=== PATIENT | male | born 1940 | race African-American/Black ===

== ENCOUNTER → 2017-06-07 | Outpatient (CLI) | payer MEDICARE | END | disposition home or self-care (01) | LOC: NM 07:33 | PROVIDERS: ATTEND Internal Medicine | DX: E04.1 Nontoxic single thyroid nodule (principal) | CPT/HCPCS: 78014; A9516 ==

== ENCOUNTER → 2022-07-14 | Outpatient (CLI) | payer MEDICARE, OTHER ==
[~2022-07-14] MED LIST: BARIUM SULFATE 450ML ORAL SUSP ONE
== END | disposition home or self-care (01) ==
LOC: CT 07:31
PROVIDERS: ATTEND Internal Medicine Gastroenterology
DX: N40.0 Benign prostatic hyperplasia without lower urinary tract symptoms (principal); J98.4 Other disorders of lung; M47.816 Spondylosis without myelopathy or radiculopathy, lumbar region; R10.9 Unspecified abdominal pain; K59.00 Constipation, unspecified; R63.4 Abnormal weight loss
CPT/HCPCS: 74176

== ENCOUNTER 2022-09-01 17:20 | Emergency (ER) | payer MEDICARE, OTHER ==
[~2022-09-01] VITALS: Ht 185.4 cm; Wt 82.7 kg
[2022-09-01 17:22] VITALS: BP 156/80; PULSE 60; RESP 18; O2SAT 99
[2022-09-01 19:00] VITALS: TEMP 98.1
[2022-09-01] MEDS ORDERED: LACTULOSE 20G/30ML UDC PO PRN (19:00)
[2022-09-01] MEDS ORDERED: ACETAMINOPHEN 325MG TABLET PO ONE (19:00)
[2022-09-01 19:41] LABS: BASOPHILS % 0.6 % (0.0-2.0); EOSINOPHILS % 2.2 % (0.0-5.0); HEMATOCRIT. 45.9 % (42.0-52.0); HEMOGLOBIN. 15.5 g/dL (14.0-18.0); LYMPHOCYTES % 28.9 % (20.0-50.0); MEAN CORPUSCULAR HEMOGLOBIN 30.5 pg (28.0-32.0); MEAN CORPUSCULAR VOLUME 90.4 fL (80.0-94.0); MEAN PLATELET VOLUME 8.2 fl (7.4-10.4); MONOCYTES % 10.1 % (2.0-8.0); NEUTROPHILS % 58.2 % (40.0-76.0); PLATELET 240 x1000/uL (130-400); RED BLOOD CELL COUNT 5.08 mill/uL (4.7-6.1); RED CELL DISTRIBUTION WIDTH 14.2 % (11.6-14.6)
[2022-09-01 19:51] LABS: INR 1.1; PROTHROMBIN TIME 12.1 sec (9.6-11.0)
[2022-09-01 20:10] LABS: CHLORIDE 112 mEq/L (98-107)
[2022-09-01 20:43] LABS: CLARITY URINE CLEAR (CLEAR); COLOR URINE DARK YELLOW (YELLOW); KETONES URINE TRACE (NEGATIVE); LEUKOCYTE ESTERASE URINE NEGATIVE (NEGATIVE); NITRITE URINE NEGATIVE (NEGATIVE); OCCULT BLOOD URINE NEGATIVE (NEGATIVE); PH URINE 5.5 (4.5-8.0); PROTEIN URINE 2+ (NEGATIVE); SPECIFIC GRAVITY URINE 1.033 (1.005-1.030)
== END 2022-09-01 23:40 | disposition home or self-care (01) ==
LOC: ER 17:20
DX: K59.00 Constipation, unspecified (principal); I10 Essential (primary) hypertension; Z98.890 Other specified postprocedural states
CPT/HCPCS: 36415; 74022; 80053; 81003; 85025; 99284

== ENCOUNTER 2022-09-23 16:15 | Emergency (ER) | payer MEDICARE, OTHER ==
[~2022-09-23] VITALS: Ht 185.4 cm; Wt 81.0 kg
[2022-09-23 16:29] VITALS: BP 159/94; PULSE 72; RESP 16; TEMP 97.7; O2SAT 100
[2022-09-23 17:33] LABS: BASOPHILS % 0.4 % (0.0-2.0); EOSINOPHILS % 1.3 % (0.0-5.0); HEMATOCRIT. 42.3 % (42.0-52.0); HEMOGLOBIN. 14.2 g/dL (14.0-18.0); LYMPHOCYTES % 32.1 % (20.0-50.0); MEAN CORPUSCULAR HEMOGLOBIN 30.4 pg (28.0-32.0); MEAN CORPUSCULAR HGB CONC 33.5 g/dL (31.0-37.0); MEAN CORPUSCULAR VOLUME 90.7 fL (80.0-94.0); MEAN PLATELET VOLUME 8.7 fl (7.4-10.4); MONOCYTES % 10.4 % (2.0-8.0); NEUTROPHILS % 55.8 % (40.0-76.0); PLATELET 179 x1000/uL (130-400); RED BLOOD CELL COUNT 4.66 mill/uL (4.7-6.1); RED CELL DISTRIBUTION WIDTH 14.1 % (11.6-14.6)
[2022-09-23 17:37] LABS: CHLORIDE 111 mEq/L (98-107); INDEX HEMOLYSI 1 (1-3); INDEX ICTERIC 1 (1-4); INDEX LIPEMIC 1 (1-3); POTASSIUM 3.6 mEq/L (3.5-5.1); SODIUM 140 mEq/L (136-145)
[2022-09-23 17:45] LABS: ALANINE AMINOTRANSFERASE 20 IU/L (13-61); ALBUMIN 3.5 g/dL (3.4-5.0); ASPARTATE AMINOTRANSFERASE 18 IU/L (15-37); BILIRUBIN TOTAL 0.8 mg/dL (0.1-1.0); CALCIUM 8.4 mg/dL (8.5-10.1); CARBON DIOXIDE 26 mEq/L (21-32); CREATININE 1.1 mg/dL (0.6-1.3); GLUCOSE 97 mg/dL (70-105); PROTEIN TOTAL 6.9 g/dL (6.0-8.3); UREA NITROGEN BLOOD 13 mg/dL (7-21)
[2022-09-23] MEDS ORDERED: NA P230E RC (18:57)
[2022-09-23] MEDS ORDERED: POLY119P2 MT (18:57)
[2022-09-23] MEDS ORDERED: MOM MT (18:57)
== END 2022-09-23 19:47 | disposition home or self-care (01) ==
LOC: ER 16:15
DX: K59.00 Constipation, unspecified (principal); I10 Essential (primary) hypertension; Z98.890 Other specified postprocedural states
CPT/HCPCS: 36415; 74176; 80053; 85025; 99284

== ENCOUNTER 2024-09-10 01:22 | Inpatient (IN) | payer MEDICARE, OTHER ==
[2024-09-10] VITALS (9 sets, daily range): BP systolic 91–144; BP diastolic 79–122; PULSE 81–110; RESP 15–27; TEMP 36–36.6; O2SAT 86–100
[~2024-09-10] VITALS: Ht 185.4 cm; Wt 105.7 kg
[~2024-09-10 01:22] MED LIST changes: +ALPR-341 PO; -BARIUM SULFATE 450ML ORAL SUSP ONE; +CARV25TA47 PO; +FURO40TA5 PO; +LINA145C PO; +RIVA20TA PO; +TAMS-54 PO; +ZOLP12.52 PO
[2024-09-10 02:41] LABS: BASOPHILS % 0.4 % (0.0-2.0); EOSINOPHILS % 1.8 % (0.0-5.0); HEMATOCRIT. 46.3 % (42.0-52.0); HEMOGLOBIN. 15.0 g/dL (14.0-18.0); LYMPHOCYTES % 19.4 % (20.0-50.0); MEAN PLATELET VOLUME 9.2 fl (7.4-10.4); MONOCYTES % 10.2 % (2.0-8.0); NEUTROPHILS % 68.2 % (40.0-76.0); PLATELET 165 x1000/uL (130-400); RED BLOOD CELL COUNT 5.01 mill/uL (4.7-6.1); RED CELL DISTRIBUTION WIDTH 20.2 % (11.6-14.6)
[2024-09-10 02:48] LABS: INR 1.4
[2024-09-10 03:05] LABS: CREATININE 1.3 mg/dL (0.6-1.3); UREA NITROGEN BLOOD 16 mg/dL (9-23)
[2024-09-10 03:06] LABS: ETHANOL BLOOD < 10 mg/dL (<10); TROPONIN I HIGH SENSITIVITY 39 ng/L (3.0-53)
[2024-09-10 03:07] LABS: ASPARTATE AMINOTRANSFERASE 29 IU/L (<34); BILIRUBIN DIRECT 0.7 mg/dL (<=3.0)
[2024-09-10 03:08] LABS: BILIRUBIN TOTAL 1.5 mg/dL (0.1-1.0); PROTEIN TOTAL 5.8 g/dL (6.0-8.3)
[2024-09-10] MEDS: FUROSEMIDE 40MG/4ML VIAL IVP NR (03:35)
[2024-09-10] MEDS ORDERED: IPRATROPIUM/ALBUTEROL 0.5-3(2.5)MG/3ML NEB HHN PRN (03:45)
[2024-09-10] MEDS ORDERED: ONDANSETRON HCL 4MG/2ML INJ IV PRN (03:45)
[2024-09-10] MEDS ORDERED: ACETAMINOPHEN 325MG TABLET PO PRN (03:45)
[2024-09-10] MEDS ORDERED: GUAIFENESIN 200MG/10ML SUGAR FREE UDC PO PRN (03:45)
[2024-09-10] MEDS ORDERED: CLONIDINE 0.1MG TABLET PO PRN (03:45)
[2024-09-10] MEDS ORDERED: DOCUSATE SODIUM 100MG CAPSULE PO PRN (03:45)
[2024-09-10] MEDS: ASPIRIN 325MG EC TABLET PO NR (04:34)
[2024-09-10] MEDS: ENOXAPARIN 80MG/0.8ML SYR SUBCUT SCH (06:22)
[2024-09-10 07:30] LABS: CLARITY URINE CLEAR (CLEAR); COLOR URINE YELLOW (YELLOW); GLUCOSE URINE NEGATIVE (NEGATIVE); KETONES URINE NEGATIVE (NEGATIVE); LEUKOCYTE ESTERASE URINE NEGATIVE (NEGATIVE); NITRITE URINE NEGATIVE (NEGATIVE); OCCULT BLOOD URINE 2+ (NEGATIVE); PH URINE 5.5 (4.5-8.0); PROTEIN URINE TRACE (NEGATIVE); SPECIFIC GRAVITY URINE 1.007 (1.005-1.030); UROBILINOGEN URINE 0.2 E.U./dL (0.2-1.0)
[2024-09-10 07:39] LABS: BACTERIA URINE FEW; SQUAMOUS EPITHELIAL CELL URINE FEW /lpf (RARE/1+); WBC URINE NONE SEEN /hpf (0-2); YEAST URINE NONE SEEN
[2024-09-10 08:03] LABS: *AMPHETAMINES SCREEN URINE NEGATIVE (NEGATIVE); *BARBITURATES SCREEN URINE NEGATIVE (NEGATIVE); *BENZODIAZEPINES SCREEN URINE NEGATIVE (NEGATIVE); *COCAINE SCREEN URINE NEGATIVE (NEGATIVE); METHADONE URINE SCREEN NEGATIVE (NEGATIVE)
[2024-09-10 08:04] LABS: CANNABINOID URINE SCREEN NEGATIVE (NEGATIVE); ECSTASY MDMA SCREEN URINE NEGATIVE (NEGATIVE); OPIATES URINE SCREEN NEGATIVE (NEGATIVE); PHENCYCLIDINE URINE SCREEN NEGATIVE (NEGATIVE)
[2024-09-10] MEDS: PANTOPRAZOLE 40MG DR TABLET PO SCH (08:08)
[2024-09-10] MEDS: FUROSEMIDE 40MG/4ML VIAL IV SCH (10:14)
[2024-09-10] MEDS: CARVEDILOL 6.25 MG TABLET PO SCH (10:15)
[2024-09-10] MEDS: TAMSULOSIN HCL 0.4MG SR CAPSULE PO SCH (10:15)
[2024-09-10 13:28] LABS: CREATININE 1.3 mg/dL (0.6-1.3); UREA NITROGEN BLOOD 19 mg/dL (9-23)
[2024-09-11] VITALS (11 sets, daily range): BP systolic 95–111; BP diastolic 68–90; PULSE 78–92; RESP 15–23; TEMP 36.2–36.7; O2SAT 93–100
[2024-09-11 08:34] LABS: BASOPHILS % 0.7 % (0.0-2.0); EOSINOPHILS % 4.4 % (0.0-5.0); HEMATOCRIT. 43.3 % (42.0-52.0); HEMOGLOBIN. 14.1 g/dL (14.0-18.0); LYMPHOCYTES % 19.7 % (20.0-50.0); MEAN PLATELET VOLUME 9.4 fl (7.4-10.4); MONOCYTES % 13.1 % (2.0-8.0); NEUTROPHILS % 62.1 % (40.0-76.0); PLATELET 150 x1000/uL (130-400); RED BLOOD CELL COUNT 4.70 mill/uL (4.7-6.1); RED CELL DISTRIBUTION WIDTH 19.7 % (11.6-14.6)
[2024-09-11 08:50] LABS: CREATININE 1.4 mg/dL (0.6-1.3); TRIGLYCERIDE 60.0 mg/dL (0-150); UREA NITROGEN BLOOD 19.0 mg/dL (9-23)
[2024-09-11 08:51] LABS: LDL CHOLESTEROL 60.0 mg/dL (5-100)
[2024-09-11 08:53] LABS: T4 FREE 1.09 ng/dL (0.89-1.76)
[2024-09-11] MEDS: IPRATROPIUM/ALBUTEROL 0.5-3(2.5)MG/3ML NEB HHN SCH (14:36)
[2024-09-11] MEDS ORDERED: IOHEXOL-350 100 ML BOTTLE ONE (16:57)
[2024-09-12] VITALS (12 sets, daily range): BP systolic 97–118; BP diastolic 64–81; PULSE 68–91; RESP 18–24; TEMP 36.2–36.5; O2SAT 96–100
[2024-09-12 07:03] LABS: HEMATOCRIT. 41.7 % (42.0-52.0); HEMOGLOBIN. 14.0 g/dL (14.0-18.0); MEAN PLATELET VOLUME 9.3 fl (7.4-10.4); PLATELET 153 x1000/uL (130-400); RED BLOOD CELL COUNT 4.53 mill/uL (4.7-6.1); RED CELL DISTRIBUTION WIDTH 19.9 % (11.6-14.6)
[2024-09-12 08:22] LABS: CREATININE 1.3 mg/dL (0.6-1.3); UREA NITROGEN BLOOD 22 mg/dL (9-23)
[2024-09-12 09:43] LABS: BAND% 4.0 % (1.0-6.0); EOSINOPHILS % MANUAL 5.0 % (0.0-5.0); LYMPHOCYTES % MANUAL 24.0 % (20.0-50.0); MONOCYTES % MANUAL 14.0 % (2.0-8.0); NEUTROPHILS % MANUAL 53.0 % (45.0-75.0)
[2024-09-12 09:44] LABS: PLATELET ESTIMATE NORMAL
[2024-09-13] VITALS (10 sets, daily range): BP systolic 99–116; BP diastolic 60–86; PULSE 54–98; RESP 15–20; TEMP 36.1–36.9; O2SAT 92–99
[2024-09-13 07:10] LABS: BASOPHILS % 0.6 % (0.0-2.0); EOSINOPHILS % 4.1 % (0.0-5.0); HEMATOCRIT. 41.3 % (42.0-52.0); HEMOGLOBIN. 13.7 g/dL (14.0-18.0); LYMPHOCYTES % 21.3 % (20.0-50.0); MEAN PLATELET VOLUME 9.2 fl (7.4-10.4); MONOCYTES % 12.6 % (2.0-8.0); NEUTROPHILS % 61.4 % (40.0-76.0); PLATELET 133 x1000/uL (130-400); RED BLOOD CELL COUNT 4.48 mill/uL (4.7-6.1); RED CELL DISTRIBUTION WIDTH 19.5 % (11.6-14.6)
[2024-09-13 07:21] LABS: CREATININE 1.3 mg/dL (0.6-1.3)
[2024-09-13 07:22] LABS: UREA NITROGEN BLOOD 19 mg/dL (9-23)
[2024-09-13 12:09] LABS: PROTEIN BODY FLUID < 2.0 gm/dL
[2024-09-13 12:51] LABS: BODY FLUID MONOCYTES 16 %; BODY FLUID RBC 180 /cu mm (0-2000); BODY FLUID WBC 131 /cu mm (0-200)
[2024-09-13 20:27] LABS: LACTATE DEHYDROGENASE 298 IU/L (120-246)
[2024-09-13] MEDS: MELATONIN 3MG TABLET PO SCH (21:40)
[2024-09-14] VITALS (9 sets, daily range): BP systolic 95–115; BP diastolic 66–81; PULSE 67–87; RESP 16–20; TEMP 36.1–36.9; O2SAT 96–100
[2024-09-14 06:57] LABS: BASOPHILS % 0.6 % (0.0-2.0); EOSINOPHILS % 3.4 % (0.0-5.0); HEMATOCRIT. 44.8 % (42.0-52.0); HEMOGLOBIN. 14.9 g/dL (14.0-18.0); LYMPHOCYTES % 24.2 % (20.0-50.0); MEAN PLATELET VOLUME 9.7 fl (7.4-10.4); MONOCYTES % 10.4 % (2.0-8.0); NEUTROPHILS % 61.4 % (40.0-76.0); PLATELET 143 x1000/uL (130-400); RED BLOOD CELL COUNT 4.84 mill/uL (4.7-6.1); RED CELL DISTRIBUTION WIDTH 19.7 % (11.6-14.6)
[2024-09-14 07:17] LABS: CREATININE 1.3 mg/dL (0.6-1.3); UREA NITROGEN BLOOD 19 mg/dL (9-23)
[2024-09-14] MEDS ORDERED: TAMS-54 PO (13:22)
[2024-09-14] MEDS ORDERED: RIVA20TA PO (13:22)
[2024-09-14] MEDS ORDERED: COR6 PO (13:22)
[2024-09-14] MEDS ORDERED: FURO40TA5 PO (13:22)
[2024-09-14 16:56] LABS: BG BASE EXCESS -1.4 mmol/L (-2.0-3.0); BG CARBOXYHEMOGLOBIN 1.1 % (0.5-1.5); BG DEOXYHEMOGLOBIN 7.1 % (0.0-5.0); BG FRACTION INSPIRED OXYGEN 21; BG HCO3 ACT 21.8 mmol/L (21.0-28.0); BG METHEMOGLOBIN 0.3 % (0.5-1.5); BG OXYGEN SATURATION 92.8 % (94.0-98.0); BG OXYHEMOGLOBIN 91.5 % (94.0-98.0); BG PCO2 32.4 mmHg (35.0-48.0); BG PH 7.445 (7.350-7.450); BG PO2 64.6 mmHg (83.0-108.0); BG SAMPLE SITE RIGHT BRACHIAL; BG TOTAL HEMOGLOBIN 15.1 g/dL (13.5-17.5); BG VENT MODE ROOM AIR
[2024-09-14] MEDS: DICLOFENAC SODIUM 1% GEL 50GM TOP SCH (18:00)
[2024-09-14] MEDS: ACETAMINOPHEN 500MG TABLET PO SCH (18:24)
[2024-09-15] VITALS (9 sets, daily range): BP systolic 95–117; BP diastolic 62–78; PULSE 58–95; RESP 16–22; TEMP 35.7–36.7; O2SAT 94–100
[2024-09-15] MEDS: LIDOCAINE 5% PATCH TOP SCH (10:14)
[2024-09-16] VITALS: BP 118/73; PULSE 72; RESP 20; TEMP 36.6; O2SAT 97
[2024-09-16 04:00] VITALS: BP 129/78; PULSE 77; RESP 20; TEMP 36.8; O2SAT 100
[2024-09-16 08:00] VITALS: BP 129/79; PULSE 61; RESP 20; TEMP 36.7; O2SAT 95
[2024-09-16 12:00] VITALS: BP 118/80; PULSE 71; RESP 18; TEMP 36.4; O2SAT 97
[2024-09-16 12:49] LABS: BASOPHILS % 0.5 % (0.0-2.0); EOSINOPHILS % 2.4 % (0.0-5.0); HEMATOCRIT. 45.6 % (42.0-52.0); HEMOGLOBIN. 14.8 g/dL (14.0-18.0); LYMPHOCYTES % 13.3 % (20.0-50.0); MEAN PLATELET VOLUME 8.9 fl (7.4-10.4); MONOCYTES % 5.1 % (2.0-8.0); NEUTROPHILS % 78.7 % (40.0-76.0); PLATELET 156 x1000/uL (130-400); RED BLOOD CELL COUNT 4.83 mill/uL (4.7-6.1); RED CELL DISTRIBUTION WIDTH 20.0 % (11.6-14.6)
[2024-09-16 13:06] LABS: CREATININE 1.1 mg/dL (0.6-1.3); UREA NITROGEN BLOOD 23 mg/dL (9-23)
[2024-09-16 16:00] VITALS: BP 129/74; PULSE 77; RESP 18; TEMP 36.7; O2SAT 97
[2024-09-16 20:00] VITALS: BP 122/71; PULSE 91; RESP 20; TEMP 37.2; O2SAT 98
[2024-09-17] VITALS: BP 106/64; PULSE 86; RESP 18; TEMP 36.6; O2SAT 99
[2024-09-17 04:00] VITALS: BP 106/64; PULSE 86; RESP 18; TEMP 36.6; O2SAT 99
[2024-09-17 08:00] VITALS: BP 105/63; PULSE 83; RESP 18; TEMP 36.5; O2SAT 100
[2024-09-17 12:00] VITALS: BP 113/80; PULSE 64; RESP 18; TEMP 36.6; O2SAT 1
[2024-09-17 16:00] VITALS: BP 99/59; PULSE 70; RESP 20; TEMP 36.6; O2SAT 99
[2024-09-17 16:16] LABS: HEMATOCRIT. 31.4 % (42.0-52.0); HEMOGLOBIN. 10.4 g/dL (14.0-18.0); MEAN PLATELET VOLUME 9.1 fl (7.4-10.4); PLATELET 139 x1000/uL (130-400); RED BLOOD CELL COUNT 3.42 mill/uL (4.7-6.1); RED CELL DISTRIBUTION WIDTH 19.1 % (11.6-14.6)
[2024-09-17 16:36] LABS: CREATININE 1.0 mg/dL (0.6-1.3); UREA NITROGEN BLOOD 18 mg/dL (9-23)
[2024-09-17 16:44] LABS: BAND% 2.0 % (1.0-6.0); LYMPHOCYTES % MANUAL 2.0 % (20.0-50.0); MONOCYTES % MANUAL 9.0 % (2.0-8.0); NEUTROPHILS % MANUAL 87.0 % (45.0-75.0); PLATELET ESTIMATE NORMAL
[2024-09-17 20:19] VITALS: BP 101/72; PULSE 89; RESP 18; TEMP 37.1; O2SAT 99
[2024-09-18] VITALS: BP 99/57; PULSE 84; RESP 20; TEMP 36.6; O2SAT 98
[2024-09-18 04:00] VITALS: BP 117/71; PULSE 55; RESP 20; TEMP 36.2; O2SAT 99
[2024-09-18 07:35] LABS: BASOPHILS % 0.1 % (0.0-2.0); EOSINOPHILS % 0.0 % (0.0-5.0); HEMATOCRIT. 26.1 % (42.0-52.0); HEMOGLOBIN. 8.9 g/dL (14.0-18.0); LYMPHOCYTES % 11.2 % (20.0-50.0); MEAN PLATELET VOLUME 9.4 fl (7.4-10.4); MONOCYTES % 11.6 % (2.0-8.0); NEUTROPHILS % 77.1 % (40.0-76.0); PLATELET 135 x1000/uL (130-400); RED BLOOD CELL COUNT 2.88 mill/uL (4.7-6.1); RED CELL DISTRIBUTION WIDTH 19.1 % (11.6-14.6)
[2024-09-18 07:40] LABS: CREATININE 1.1 mg/dL (0.6-1.3)
[2024-09-18 07:41] LABS: UREA NITROGEN BLOOD 24 mg/dL (9-23)
[2024-09-18 08:00] VITALS: BP 114/69; PULSE 82; RESP 20; TEMP 36.2; O2SAT 99
[2024-09-18] MEDS: ENOXAPARIN 40MG/0.4ML SYR SUBCUT SCH (08:39)
[2024-09-18] MEDS ORDERED: POTASSIUM CHLORIDE 20MEQ/PACKET PO SCH (11:00)
[2024-09-18 12:00] VITALS: BP 110/70; PULSE 81; RESP 20; TEMP 36.3; O2SAT 99
[2024-09-18] MEDS ORDERED: SODIUM CHLORIDE 3% FOR INH 4ML NEB INH SCH ×2 (12:00→18:00)
[2024-09-18] MEDS ORDERED: IPRATROPIUM/ALBUTEROL 0.5-3(2.5)MG/3ML NEB HHN SCH (12:00)
[2024-09-18] MEDS ORDERED: ACETYLCYSTEINE 200MG/ML 20% VIAL 4ML INH SCH (14:00)
[2024-09-18 14:30] VITALS: RESP 20
[2024-09-18] MEDS ORDERED: NOREPINEPHRINE 8MG/250ML PMX 250 ML IV PRN (14:30)
[2024-09-18] MEDS ORDERED: FUROSEMIDE 100MG/10ML VIAL IV SCH (17:15)
[2024-09-19] MEDS ORDERED: METOLAZONE 2.5MG TABLET PO NR (08:00)
[2024-09-19] MEDS ORDERED: POTASSIUM CHLORIDE 20MEQ/PACKET PO SCH (09:00)
== END 2024-09-18 17:57 | DRG 208 ==
LOC: ER 01:22 → 5EST 03:06 → EDBEDREQ 03:07 → EDBEDREQTM 03:07 → ENRESERV 08:22 → 5EST 09:35 → 7WST 09-12 12:00 → MICUSO 09-18 14:22
PROVIDERS: ADMIT Hospitalist; ATTEND Hospitalist
PROC: 0W993ZZ Drainage of Right Pleural Cavity, Percutaneous Approach (ICD-10-PCS; 2024-09-13)
PROC: 5A12012 Performance of Cardiac Output, Single, Manual (ICD-10-PCS; principal; 2024-09-18)
PROC: 5A1935Z Respiratory Ventilation, Less than 24 Consecutive Hours (ICD-10-PCS; 2024-09-18)
PROC: 0BH17EZ Insertion of Endotracheal Airway into Trachea, Via Natural or Artificial Opening (ICD-10-PCS; 2024-09-18)
DX: J96.01 Acute respiratory failure with hypoxia (principal); I50.43 Acute on chronic combined systolic (congestive) and diastolic (congestive) heart failure; J18.9 Pneumonia, unspecified organism; I48.20 Chronic atrial fibrillation, unspecified; I27.82 Chronic pulmonary embolism; D68.59 Other primary thrombophilia; I31.39 Other pericardial effusion (noninflammatory); R18.8 Other ascites; E87.20 Acidosis, unspecified; I42.9 Cardiomyopathy, unspecified; I11.0 Hypertensive heart disease with heart failure; I08.1 Rheumatic disorders of both mitral and tricuspid valves; I27.20 Pulmonary hypertension, unspecified; N40.1 Benign prostatic hyperplasia with lower urinary tract symptoms; R33.8 Other retention of urine; I46.9 Cardiac arrest, cause unspecified; I48.0 Paroxysmal atrial fibrillation; I25.10 Atherosclerotic heart disease of native coronary artery without angina pectoris; R53.81 Other malaise; F41.9 Anxiety disorder, unspecified; M17.0 Bilateral primary osteoarthritis of knee; S81.812A Laceration without foreign body, left lower leg, initial encounter; E78.5 Hyperlipidemia, unspecified; X58.XXXA Exposure to other specified factors, initial encounter; Z82.49 Family history of ischemic heart disease and other diseases of the circulatory system; Z79.899 Other long term (current) drug therapy; Z87.891 Personal history of nicotine dependence; Z91.148 Patient's other noncompliance with medication regimen for other reason; I25.2 Old myocardial infarction; Z79.01 Long term (current) use of anticoagulants; Z99.81 Dependence on supplemental oxygen; Y93.89 Activity, other specified; Y92.89 Other specified places as the place of occurrence of the external cause; Y99.8 Other external cause status
CPT/HCPCS: 32555; 36415; 36600; 71045; 71275; 76604; 80048; 80061; 80076; 80305; 80320; 81003; 82040; 82375; 82550; 82805; 82962; 83605; 83615; 83880; 84439; 84443; 84484; 85025; 88108; 93005; 93306; 93970; 94002; 94070; 94618; 94640; 94664; 94760; 97161; 97166; 97530; 97535; 98960; 99285; A4606; J1650; J1938; Q9967; G0480